=== PATIENT | female | born 1970 | race Caucasian/White ===

== ENCOUNTER 2019-11-04 10:17 | Emergency (ER) | payer BC, OTHER ==
[~2019-11-04] VITALS: Ht 157.5 cm; Wt 75.3 kg
[2019-11-04 10:18] VITALS: BP_SYST 128
--- NOTE | 2019-11-04 10:18 | NUR ---
Patient triaged at this time. Denied any acute respiratory or cardiac distress at this time. Sent back to the waiting room. Informed of the approximate wait time. Instructed to notify ED staff for any changes in condition or worsening of symptoms. Patient verbalized understanding. Urine cup provided.
--- NOTE | 2019-11-04 10:40 | NUR ---
Pt came to ER for nausea and lower abd pain. Pt rates pain 6/10 at this time resting in gurney awaiting
--- NOTE | 2019-11-04 10:45 | NUR ---
ER at bedside examining patient.
[2019-11-04 11:58] LABS: BASOPHILS % (AUTO) 0.7 % (0.0-2.0); EOSINOPHILS # (AUTO) 0.3 K/uL (0.0-0.4); EOSINOPHILS % (AUTO) 4.8 % (0.0-4.0); HEMOGLOBIN 9.8 g/dL (12.0-16.0); LYMPHOCYTES # (AUTO) 3.1 K/uL (1.0-5.5); LYMPHOCYTES % (AUTO) 46.3 % (20.5-51.5); MEAN CORPUSCULAR HEMOGLOBIN 23 pg (27-31); MEAN CORPUSCULAR HGB CONC 32 % (32-36); MEAN CORPUSCULAR VOLUME 73 fL (79.0-98.0); MONOCYTES # (AUTO) 0.4 K/uL (0.0-1.0); MONOCYTES % (AUTO) 6.4 % (1.7-9.3); NEUTROPHILS # (AUTO) 2.8 K/uL (1.8-7.7); NEUTROPHILS % (AUTO) 41.8 % (40.0-70.0); PLATELET COUNT (AUTO) 541 K/uL (130-430); RED BLOOD CELL COUNT(AUTO) 4.24 MIL/uL (4.2-6.2); RED CELL DISTRIBUTION WIDTH 19.1 % (9.0-15.0); WHITE BLOOD COUNT (AUTO) 6.7 K/uL (4.8-10.8)
[2019-11-04] MEDS ORDERED: NACL 0.9% 1,000 ML IV ONE (12:00)
[2019-11-04 12:04] LABS: BILIRUBIN,URINE NEGATIVE (NEGATIVE); BLOOD, URINE NEGATIVE (NEGATIVE); CLARITY/URINE CLEAR (CLEAR); COLOR,URINE YELLOW (YELLOW); GLUCOSE,URINE NEGATIVE (NEGATIVE); KETONES,URINE NEGATIVE (NEGATIVE); LEUKOCYTE ESTERASE ,URINE NEGATIVE (NEGATIVE); NITRITE, URINE NEGATIVE (NEGATIVE); PH,URINE 5.5 (5.0-8.0); PROTEIN URINE NEGATIVE (NEGATIVE); UROBILINOGEN,URINE 0.2 (0.2-1.0)
[2019-11-04 12:13] LABS: CALCIUM 8.8 mg/dL (8.4-11.0); CREATININE 0.88 mg/dL (0.55-1.30); POTASSIUM 3.5 mmol/L (3.5-5.1)
[2019-11-04 12:18] LABS: ALBUMIN 3.5 g/dL (3.4-4.8); TOTAL BILIRUBIN 0.2 mg/dL (0.0-1.0)
--- NOTE | 2019-11-04 12:21 | NUR ---
Consent for CT abdomen with contrast obtained.
--- NOTE | 2019-11-04 14:08 | NUR ---
Pt resting in [facility], no distress, on phone, VSS
[2019-11-04 16:04] VITALS: BP_SYST 132
--- NOTE | 2019-11-04 16:05 | NUR ---
Patient given written and verbal discharge instructions and verbalizes understanding. ER MD discussed with patient the results and treatment provided. Patient in stable condition. ID arm band removed. IV catheter removed intact and dressing applied, no active bleeding. Rx of Cipro given. Patient educated on pain management and to follow up with PMD. Pain Scale 0/10. Opportunity for questions provided and answered. Medication side effect fact sheet provided.
== END 2019-11-04 16:04 | disposition home or self-care (01) ==
LOC: SED 10:17
DX: D64.9 Anemia, unspecified (principal); R10.31 Right lower quadrant pain; I10 Essential (primary) hypertension; E03.9 Hypothyroidism, unspecified; Z90.49 Acquired absence of other specified parts of digestive tract
CPT/HCPCS: 36415; 74177; 80053; 81003; 81025; 85025; 96360; 99285; J7030; Q9967

== ENCOUNTER 2020-10-30 10:25 | Inpatient (IN) | payer BC, SELFPAY ==
[~2020-10-30] VITALS: Ht 157.5 cm; Wt 72.6 kg
[2020-10-30 10:39] VITALS: BP_SYST 125
--- NOTE | 2020-10-30 10:40 | NUR ---
Patient to ER bed 7 to gown for evaluation. Side rails up. Report given to JAC DEL VALLE.
--- NOTE | 2020-10-30 10:40 | NUR ---
PT WALKED TO ROOM 7 IN STEADY GAIT WITH CO RLQ PAIN X 1 DAY. PT SPEAKS FULL SENTENCES, FOLLOWS COMMAND, DENIES MCKEE AND DIZZINESS. NO SOB. BREATHING EVEN. PT WAS ASKED TO BATH. URINE SAMPLE COLLECTED.
--- NOTE | 2020-10-30 10:47 | NUR ---
CAROL Brooke at bedside examining patient.
[2020-10-30 11:06] LABS: BASOPHILS # (AUTO) 0.1 K/uL (0.0-0.2); BASOPHILS % (AUTO) 0.3 % (0.0-2.0); EOSINOPHILS # (AUTO) 0.1 K/uL (0.0-0.4); EOSINOPHILS % (AUTO) 0.5 % (0.0-4.0); HEMATOCRIT 35.3 % (36-48); HEMOGLOBIN 11.7 g/dL (12.0-16.0); LYMPHOCYTES # (AUTO) 2.7 K/uL (1.0-5.5); LYMPHOCYTES % (AUTO) 16.1 % (20.5-51.5); MEAN CORPUSCULAR HEMOGLOBIN 28 pg (27-31); MEAN CORPUSCULAR HGB CONC 33 % (32-36); MEAN CORPUSCULAR VOLUME 83 fL (79.0-98.0); MONOCYTES # (AUTO) 0.8 K/uL (0.0-1.0); MONOCYTES % (AUTO) 4.5 % (1.7-9.3); NEUTROPHILS # (AUTO) 13.2 K/uL (1.8-7.7); NEUTROPHILS % (AUTO) 78.6 % (40.0-70.0); PLATELET COUNT (AUTO) 450 K/uL (130-430); RED BLOOD CELL COUNT(AUTO) 4.24 MIL/uL (4.2-6.2); RED CELL DISTRIBUTION WIDTH 18.2 % (9.0-15.0); WHITE BLOOD COUNT (AUTO) 16.8 K/uL (4.8-10.8)
--- NOTE | 2020-10-30 11:08 | NUR ---
PT DONE THE CT AND BACK TO HER ROOM.
[2020-10-30 11:19] LABS: CALCIUM 8.9 mg/dL (8.4-11.0); CREATININE 0.94 mg/dL (0.55-1.30)
[2020-10-30 11:31] LABS: ALBUMIN 3.5 g/dL (3.4-4.8); C-REACTIVE PROTEIN QUANT 7.1 mg/dL (0-0.5); TOTAL BILIRUBIN 0.8 mg/dL (0.0-1.0)
[2020-10-30 11:36] LABS: PROTHROMBIN TIME 10.8 SECS (9.5-12.5)
--- NOTE | 2020-10-30 11:54 | NUR ---
CT OF ABD SHOWS ACUTE APPEDICITIS, WBC WAS ALSO ELEVATED. SL ESTABLISHED ON LH. 20G. DR. HURLEY ORDERED TO CALL [facility].
[2020-10-30] MEDS ORDERED: metroNIDAZOLE 500 mg/NS 100 ML IV ONE (12:00)
[2020-10-30] MEDS ORDERED: ONDANSETRON HCL 4 MG/2 ML VIAL IVP ONE (12:00)
[2020-10-30] MEDS ORDERED: MORPHINE 4 MG INJ. 4 MG/ML VIAL IVP ONE (12:00)
[2020-10-30] MEDS ORDERED: NACL 0.9% 1,000 ML IV ONE (12:00)
[2020-10-30] MEDS ORDERED: PIPERACILLIN/TAZO 3.38 GM in NS 50 ML IV ONE (12:00)
[2020-10-30 12:01] LABS: BILIRUBIN,URINE NEGATIVE (NEGATIVE); BLOOD, URINE NEGATIVE (NEGATIVE); CLARITY/URINE CLEAR (CLEAR); COLOR,URINE YELLOW (YELLOW); GLUCOSE,URINE NEGATIVE (NEGATIVE); KETONES,URINE NEGATIVE (NEGATIVE); LEUKOCYTE ESTERASE ,URINE NEGATIVE (NEGATIVE); NITRITE, URINE NEGATIVE (NEGATIVE); PH,URINE 6.5 (5.0-8.0); PROTEIN URINE NEGATIVE (NEGATIVE); UROBILINOGEN,URINE 0.2 (0.2-1.0)
[2020-10-30] MEDS ORDERED: PIPERACILLIN/TAZOBACTAM 3.375 GM/VIAL (ZOSYN) IV ONE ×3 (12:08→21:35)
--- NOTE | 2020-10-30 12:29 | NUR ---
BC DONE. ZOSYN IVPB STARTED
[2020-10-30] MEDS ORDERED: LEVO100T PO (13:30)
[2020-10-30] MEDS ORDERED: D5/0.45 NS 1,000 ML IV SCH ×2 (13:30→17:45)
--- NOTE | 2020-10-30 13:43 | NUR ---
DR. SPEAR CALLED IN TO ORDERED FOR CONSENT FOR LAPAROTOMY, POSSIBLE OPEN AND APPENDECTOMY.
--- NOTE | 2020-10-30 16:00 | NUR ---
DR. PATTEN AT THE BEDSIDE
--- NOTE | 2020-10-30 16:10 | NUR ---
PT TAKEN TO OR BY OR NURSE AND SR. PATTEN
[2020-10-30] MEDS ORDERED: fentaNYL CITRATE/PF 100 MCG/2 ML AMP IVP PRN (16:30)
[2020-10-30] MEDS ORDERED: ONDANSETRON HCL 4 MG/2 ML VIAL IVP PRN ×2 (16:30→17:45)
[2020-10-30] MEDS ORDERED: PROPOFOL 200MG/ 20ML VIAL (DIPRIVAN) IV ONE (17:35)
[2020-10-30] MEDS ORDERED: fentaNYL CITRATE/PF 100 MCG/2 ML AMP ONE ×2 (17:35→17:55)
[2020-10-30] MEDS ORDERED: LR 1,000 ML IV.SOLN IV ONE (17:35)
[2020-10-30] MEDS ORDERED: ROCURONIUM BROMIDE 10 MG/ML (ZEMURON) ONE (17:35)
[2020-10-30] MEDS ORDERED: PHENYLEPHRINE HCL 10 MG/ML VIAL (NEOSYNEPHRINE) ONE (17:35)
[2020-10-30] MEDS ORDERED: GLYCOPYRROLATE 0.2 MG/ML VIAL ONE (17:35)
[2020-10-30] MEDS ORDERED: BUPIVACAINE /EPINEPHRINE/PF 0.25% 30 ML VIAL INJ ONE (17:35)
[2020-10-30] MEDS ORDERED: SEVOFLURANE 15 MIN GAS INH ONE (17:35)
[2020-10-30] MEDS ORDERED: MIDAZOLAM HCL 5 MG/ML VIAL (VERSED) IV ONE (17:35)
[2020-10-30] MEDS ORDERED: KCL 40 mEq in D5W 1000 mL 1,000 ML IV SCH (17:45)
[2020-10-30] MEDS ORDERED: HYDROcodone/ACETAMIN 5-325 MG TAB (NORCO/ VICODIN) PO PRN (17:45)
[2020-10-30] MEDS ORDERED: ZOLPIDEM TARTRATE 5 MG TABLET PO PRN (17:45)
[2020-10-30] MEDS ORDERED: ACETAMINOPHEN 325 MG TABLET PO PRN ×2 (17:45)
[2020-10-30] MEDS: fentaNYL CITRATE/PF 100 MCG/2 ML AMP IVP PRN ×2 (17:50→18:04)
[2020-10-30 18:37] VITALS: BP_SYST 124
[2020-10-30] MEDS: HYDROmorphone 2 MG/ML VIAL IVP PRN ×2 (18:45→23:46)
[2020-10-30 20:30] VITALS: BP_SYST 135
[2020-10-30 21:00] VITALS: BP_SYST 128
--- NOTE | 2020-10-30 21:15 | NUR ---
Patient awake alert abdomen sites clean & no bleeding noted skin dry also warm .
[2020-10-30 22:00] VITALS: BP_SYST 131
[2020-10-30] MEDS: PIPERACILLIN/TAZO 3.375/DEX-IS 50 ML IV SCH (23:44)
[2020-10-31] VITALS: BP_SYST 127
--- NOTE | 2020-10-31 02:17 | NUR ---
ZOSYN 3.375 GM IVPB administer as ordered no S/SX OF ADVERSE REACTION NOTED chest movement symmetrical / .
[2020-10-31] MEDS: PIPERACILLIN/TAZO 3.375/DEX-IS 50 ML IV SCH ×3 (05:31→17:40)
[2020-10-31] MEDS: HYDROmorphone 2 MG/ML VIAL IVP PRN (05:32)
[2020-10-31 08:11] LABS: BASOPHILS % (AUTO) 0.2 % (0.0-2.0); EOSINOPHILS % (AUTO) 0.4 % (0.0-4.0); HEMATOCRIT 32.4 % (36-48); HEMOGLOBIN 10.6 g/dL (12.0-16.0); LYMPHOCYTES # (AUTO) 1.9 K/uL (1.0-5.5); MEAN CORPUSCULAR HEMOGLOBIN 28 pg (27-31); MEAN CORPUSCULAR HGB CONC 33 % (32-36); MEAN CORPUSCULAR VOLUME 84 fL (79.0-98.0); MONOCYTES # (AUTO) 0.6 K/uL (0.0-1.0); MONOCYTES % (AUTO) 5.2 % (1.7-9.3); NEUTROPHILS # (AUTO) 9.1 K/uL (1.8-7.7); NEUTROPHILS % (AUTO) 78.2 % (40.0-70.0); PLATELET COUNT (AUTO) 398 K/uL (130-430); RED BLOOD CELL COUNT(AUTO) 3.86 MIL/uL (4.2-6.2); RED CELL DISTRIBUTION WIDTH 18.5 % (9.0-15.0); WHITE BLOOD COUNT (AUTO) 11.7 K/uL (4.8-10.8)
[2020-10-31 09:16] LABS: ALBUMIN 2.8 g/dL (3.4-4.8); CALCIUM 8.3 mg/dL (8.4-11.0); CREATININE 0.7 mg/dL (0.55-1.30); TOTAL BILIRUBIN 0.5 mg/dL (0.0-1.0)
[2020-10-31] MEDS: MORPHINE 4 MG INJ. 4 MG/ML VIAL IVP PRN ×2 (10:03→15:50)
[2020-10-31 11:24] VITALS: BP_SYST 123
[2020-10-31] MEDS ORDERED: LISI1TAB29 PO (11:36)
[2020-10-31 15:05] VITALS: BP_SYST 122
[2020-10-31] MEDS ORDERED: AMOX-426 PO (16:44)
[2020-10-31] MEDS ORDERED: HYDR-3917 PO (16:44)
[2020-10-31 16:53] VITALS: BP_SYST 122
[2020-10-31 17:31] VITALS: BP_SYST 122
== END 2020-10-31 19:00 | disposition home or self-care (01) | DRG 342 ==
LOC: SED 10:25 → SMU 14:01 → EDBD 14:01 → SMU 16:10
PROVIDERS: ADMIT Preventive Medicine Preventive Medicine/Occupational Environmental Medicine; ATTEND Preventive Medicine Preventive Medicine/Occupational Environmental Medicine
PROC: 0DTJ4ZZ Resection of Appendix, Percutaneous Endoscopic Approach (ICD-10-PCS; principal; 2020-10-30 16:00)
DX: K35.30 Acute appendicitis with localized peritonitis, without perforation or gangrene (principal); E87.1 Hypo-osmolality and hyponatremia; D69.6 Thrombocytopenia, unspecified; E87.6 Hypokalemia; E83.52 Hypercalcemia; E88.09 Other disorders of plasma-protein metabolism, not elsewhere classified; D64.9 Anemia, unspecified; Z20.822 Contact with and (suspected) exposure to COVID-19; R73.9 Hyperglycemia, unspecified; Z90.49 Acquired absence of other specified parts of digestive tract
CPT/HCPCS: 36415; 76376; 80053; 81003; 82150; 83605; 83690; 84703; 85025; 85610-TC; 85730-TC; 86140; 87040-TC; 87081; 88304; 96365; 96367; 99285; C1727; J1170; J2250; J2270; J2370; J2405; J2543; J2704; J3010; J3490; J7120

== ENCOUNTER 2023-03-20 16:10 | Emergency (ER) | payer BC ==
[~2023-03-20] VITALS: Ht 157.5 cm; Wt 68.9 kg
[~2023-03-20 16:10] MED LIST: AMOX-426 PO; HYDR-3917 PO; LEVO100T PO; LISI1TAB57 PO
[2023-03-20] MEDS ORDERED: ONDANSETRON 4 MG ODT TAB PO ONE (17:30)
[2023-03-20] MEDS ORDERED: KETOROLAC TROMETHAMINE 60 MG/2 ML VIAL IM ONE (17:45)
[2023-03-20 17:49] LABS: COVID19 ANTIGEN SOFIA FIA NEGATIVE (NEGATIVE)
[2023-03-20 17:55] LABS: INFLUENZA TYPE A NEGATIVE (NEGATIVE); INFLUENZA TYPE B NEGATIVE (NEGATIVE)
[2023-03-20] MEDS ORDERED: OSEL75CA PO (18:03)
[2023-03-20] MEDS ORDERED: IBUP-1969 PO (18:03)
[2023-03-20] MEDS ORDERED: TRAM50TA2 PO (18:03)
[2023-03-20] MEDS ORDERED: ONDA-8 TL (18:03)
[2023-03-20 19:18] LABS: BASOPHILS % (AUTO) 0.3 % (0.0-2.0); EOSINOPHILS % (AUTO) 0.3 % (0.0-4.0); HEMATOCRIT 37.4 % (36-48); LYMPHOCYTES # (AUTO) 0.8 K/uL (1.0-5.5); LYMPHOCYTES % (AUTO) 6.5 % (20.5-51.5); MEAN CORPUSCULAR HEMOGLOBIN 32 pg (27-31); MEAN CORPUSCULAR HGB CONC 35 % (32-36); MEAN CORPUSCULAR VOLUME 92 fL (79.0-98.0); MONOCYTES # (AUTO) 1.1 K/uL (0.0-1.0); MONOCYTES % (AUTO) 9.4 % (1.7-9.3); NEUTROPHILS # (AUTO) 9.9 K/uL (1.8-7.7); NEUTROPHILS % (AUTO) 83.5 % (40.0-70.0); PLATELET COUNT (AUTO) 270 K/uL (130-430); RED BLOOD CELL COUNT(AUTO) 4.07 MIL/uL (4.2-6.2); RED CELL DISTRIBUTION WIDTH 13.7 % (9.0-15.0); WHITE BLOOD COUNT (AUTO) 11.9 K/uL (4.8-10.8)
[2023-03-20 19:25] LABS: BILIRUBIN,URINE NEGATIVE (NEGATIVE); BLOOD, URINE 2+ (NEGATIVE); COLOR,URINE YELLOW (YELLOW); GLUCOSE,URINE NEGATIVE (NEGATIVE); KETONES,URINE TRACE (NEGATIVE); LEUKOCYTE ESTERASE ,URINE 1+ (NEGATIVE); NITRITE, URINE POSITIVE (NEGATIVE); PROTEIN URINE 1+ (NEGATIVE); UROBILINOGEN,URINE 0.2 (0.2-1.0)
[2023-03-20 19:26] LABS: CLARITY/URINE HAZY (CLEAR)
[2023-03-20 19:40] LABS: ALBUMIN 3.4 g/dL (3.4-4.8); BILIRUBIN,DIRECT 0.3 mg/dL (0.0-0.3); CALCIUM 8.7 mg/dL (8.4-11.0); CREATININE 1.05 mg/dL (0.55-1.30); POTASSIUM 3.8 mmol/L (3.5-5.1); TOTAL BILIRUBIN 0.8 mg/dL (0.0-1.0)
[2023-03-20] MEDS ORDERED: NITR-85 PO (20:04)
[2023-03-20 20:16] LABS: BACTERIA,URINE MODERATE /HPF (None Seen); URINE AMORPHOUS URATE 2+ /HPF (None Seen); WBC,URINE 20-50 /HPF (0-3)
[2023-03-20 20:17] LABS: MUCUS,URINE 2+ /LPF (None Seen)
[2023-03-20 20:19] VITALS: BP_SYST 131; PULSE 86; RESP 16; TEMP 98.3; O2SAT 97
== END 2023-03-20 20:19 | disposition home or self-care (01) ==
LOC: SED 16:10
DX: N39.0 Urinary tract infection, site not specified (principal); B34.9 Viral infection, unspecified; R10.9 Unspecified abdominal pain; M79.10 Myalgia, unspecified site; R51.9 Headache, unspecified; R11.2 Nausea with vomiting, unspecified; Z79.899 Other long term (current) drug therapy; Z20.822 Contact with and (suspected) exposure to COVID-19
CPT/HCPCS: 99284; 87426; 80076; 80048; 81001; 83690; 85025; 87086; 36415; 74018; 96372; 87804 ×2; 81000; 81015; Q0162; J1885